=== PATIENT | female | born 1950 ===

== ENCOUNTER 2018-12-13 09:05 | Outpatient (CLI) | payer OTHER ==
[~2018-12-13 09:05] MED LIST: AMLODIPINE BESI25 GM MC; ATORVASTATIN CA10 MG PO; CEFADROXIL500 MG PO; OMEGA 3 FISH OI1 CAP PO; PERCOCET 5/3251 TAB PO; XARELTO10 MG PO
== END 2018-12-13 09:17 | disposition home or self-care (01) ==
LOC: TOM 09:05
DX: K56.600 Partial intestinal obstruction, unspecified as to cause (principal); R10.84 Generalized abdominal pain

== ENCOUNTER → 2018-12-22 | Outpatient (CLI) | payer OTHER | END | disposition home or self-care (01) | LOC: TOM 15:00 | DX: R10.84 Generalized abdominal pain (principal); K56.600 Partial intestinal obstruction, unspecified as to cause | CPT/HCPCS: 74178; Q9965 ==